=== PATIENT | female | born 1990 | race African-American/Black ===

== ENCOUNTER 2017-07-04 14:58 | Emergency (ER) | payer OTHER ==
[~2017-07-04] VITALS: Ht 167.6 cm; Wt 67.0 kg
[~2017-07-04 14:58] MED LIST: PROT40; [UNRECOGNIZED DRUG - CODE]
[2017-07-04 16:47] VITALS: BP 114/60
== END 2017-07-04 18:45 | disposition left against medical advice (07) ==
LOC: ER 15:15
DX: R10.9 Unspecified abdominal pain (principal); N93.9 Abnormal uterine and vaginal bleeding, unspecified; Z53.21 Procedure and treatment not carried out due to patient leaving prior to being seen by health care provider
CPT/HCPCS: 81025; Z7610

== ENCOUNTER 2017-07-05 11:56 | Emergency (ER) | payer OTHER ==
[~2017-07-05] VITALS: Ht 167.6 cm; Wt 68.0 kg
[2017-07-05 15:10] VITALS: BP 118/64
[2017-07-05] MEDS ORDERED: ONDANSETRON 4MG ODT PO STA (15:22)
[2017-07-05] MEDS ORDERED: MAGNESIUM/ALUMINUM HYDROXIDE/SIMETHICONE 30ML UDC PO STA (15:22)
[2017-07-05] MEDS ORDERED: VISCOUS LIDOCAINE 2% 15 ML UDC PO STA (15:22)
== END 2017-07-05 15:53 | disposition left against medical advice (07) ==
LOC: ER 12:24
DX: R10.13 Epigastric pain (principal); N93.9 Abnormal uterine and vaginal bleeding, unspecified; F12.10 Cannabis abuse, uncomplicated; Z87.11 Personal history of peptic ulcer disease
CPT/HCPCS: 99281

== ENCOUNTER 2018-05-27 18:48 | Emergency (ER) | payer OTHER ==
[~2018-05-27] VITALS: Ht 167.6 cm; Wt 64.0 kg
[2018-05-27 18:50] VITALS: BP 119/78
[2018-05-27 21:29] LABS: CLARITY URINE CLEAR (CLEAR); COLOR URINE YELLOW (YELLOW); KETONES URINE NEGATIVE (NEGATIVE); LEUKOCYTE ESTERASE URINE NEGATIVE (NEGATIVE); NITRITE URINE NEGATIVE (NEGATIVE); OCCULT BLOOD URINE NEGATIVE (NEGATIVE); PH URINE 5.5 (4.5-8.0); PROTEIN URINE NEGATIVE (NEGATIVE); SPECIFIC GRAVITY URINE 1.005 (1.005-1.030); UROBILINOGEN URINE 0.2 E.U./dL (0.2-1.0)
== END 2018-05-27 20:00 | disposition left against medical advice (07) ==
LOC: ER 18:48
DX: J02.9 Acute pharyngitis, unspecified (principal); F12.10 Cannabis abuse, uncomplicated; Z53.21 Procedure and treatment not carried out due to patient leaving prior to being seen by health care provider
CPT/HCPCS: 81003; 81025